=== PATIENT | male | born 2000 | race Caucasian/White ===

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

== ENCOUNTER → 2020-01-01 | Outpatient (CLI) | payer BC, OTHER ==
[~2020-01-01] MED LIST: ACET-716 PO; CLIN150C14 PO; IBUP80TA PO
--- NOTE | 2020-01-02 02:04 | REP ---
Clinical: Trauma. Contusion. Technique: AP, lateral, bilateral oblique and sunrise views. Findings: The osseous structures and joint spaces are intact and normal. There is no evidence for acute fracture or dislocation. No joint effusion is appreciated. Surrounding soft tissues are unremarkable. No subcutaneous emphysema or radiodense foreign body. Impression: Normal examination. No acute fracture or dislocation. Electronically Signed by Dariel Flood MD 01/02/2020 01:55 A
== END ==
LOC: M ADAMS 09:08
PROVIDERS: ATTEND Physician Assistant
DX: S80.01XA Contusion of right knee, initial encounter (principal); V86.95XA Unspecified occupant of 3- or 4- wheeled all-terrain vehicle (ATV) injured in nontraffic accident, initial encounter; Y92.89 Other specified places as the place of occurrence of the external cause

== ENCOUNTER 2024-06-11 22:04 | Emergency (ER) | payer OTHER ==
[~2024-06-11] VITALS: Ht 190.5 cm; Wt 95.0 kg
[~2024-06-11 22:04] MED LIST changes: -CLIN150C14 PO; +CLIN150C17 PO
[2024-06-11] MEDS: LIDOCAINE 2% MDV 20ML VIAL SC ONE (23:25)
[2024-06-11] MEDS: CEPHALEXIN 500 MG CAP PO ONE (23:36)
[2024-06-12] MEDS ORDERED: CEPH500C PO (00:04)
[2024-06-12 00:30] VITALS: BP 132/78; TEMP 98.2; O2SAT 98
== END 2024-06-12 00:32 | disposition home or self-care (01) ==
LOC: M ED 22:04
DX: S61.311A Laceration without foreign body of left index finger with damage to nail, initial encounter (principal); W31.2XXA Contact with powered woodworking and forming machines, initial encounter; Y92.009 Unspecified place in unspecified non-institutional (private) residence as the place of occurrence of the external cause; Y93.89 Activity, other specified; Y99.9 Unspecified external cause status